=== PATIENT | male | born 1990 | race Caucasian/White ===

== ENCOUNTER 2022-06-02 14:41 | Emergency (ER) | payer SELFPAY ==
[~2022-06-02] VITALS: Ht 162.6 cm; Wt 54.4 kg
[2022-06-02 15:03] VITALS: BP 118/70
--- NOTE | 2022-06-02 17:53 | NUR ---
TO ER CHAIR FOR ALEXANDRO
[2022-06-02] MEDS ORDERED: LIDOCAINE 0.5% HCL 50 ML VIAL TP ONE (18:00)
[2022-06-02] MEDS ORDERED: TDAP [DIPH/PERTUSSIS/TET] 0.5 ML VIAL IM ONE ×2 (18:00→19:13)
[2022-06-02] MEDS ORDERED: ACETAMINOPHEN 325 MG TABLET PO ONE (18:00)
[2022-06-02] MEDS ORDERED: IBUP-1953 PO (18:02)
[2022-06-02] MEDS ORDERED: CEPH500T PO (19:04)
--- NOTE | 2022-06-02 19:17 | NUR ---
Patient discharged to home in stable condition. Written and verbal after care instructions given. Patient verbalizes understanding of instruction.
== END 2022-06-02 19:18 | disposition home or self-care (01) ==
LOC: ER 14:43
DX: S61.211A Laceration without foreign body of left index finger without damage to nail, initial encounter (principal); Z79.899 Other long term (current) drug therapy; Z60.2 Problems related to living alone; W26.8XXA Contact with other sharp object(s), not elsewhere classified, initial encounter; Y93.89 Activity, other specified; Y92.89 Other specified places as the place of occurrence of the external cause; Y99.8 Other external cause status
CPT/HCPCS: 99283; 12001; 90471; 90715; A6403